=== PATIENT | female | born 1965 | race Caucasian/White ===

== ENCOUNTER 2018-12-05 20:41 | Emergency (ER) | payer OTHER ==
[~2018-12-05] VITALS: Ht 147.3 cm; Wt 69.9 kg
[2018-12-05 20:45] VITALS: Ht 147.3 cm; Wt 69.9 kg
[2018-12-06 00:10] VITALS: BP 131/86
== END 2018-12-06 00:10 | disposition home or self-care (01) ==
LOC: ED 20:41
DX: K12.2 Cellulitis and abscess of mouth (principal); I10 Essential (primary) hypertension
CPT/HCPCS: J1200; J2930; J3490